=== PATIENT | female | born 1955 ===

== ENCOUNTER 2017-04-05 07:43 | Day surgery (SDC) | payer OTHER ==
[2017-04-05 08:33] VITALS: BMI 23.5
[2017-04-05] MEDS ORDERED: Propofol 10 mg/ml Inj (20 ML) ONE (09:34)
--- NOTE | 2017-04-05 09:37 | CP.SDSHP ---
Same Day Surgery H & P - History Proposed Procedure: EGD Pre-Op Diagnosis: SEE NOTES - Previous Medical/Surgical History Misc: Other Pain: 4.Moderate Pain - Allergies Allergies: Allergies No Known Allergies Allergy (Verified 04/05/17 08:33) - Physical Exam General Appearance: N Vital Signs: Vital Signs 04/05/17 08:35 Temperature 97.4 F L Pulse Rate 79 Respiratory 18 Rate Blood Pressure 131/74 O2 Sat by Pulse 100 Oximetry Mental Status: Alert & Oriented x3 Neuro: WNL Heart: WNL Lungs: WNL GI: Other - {Optional Preform as Required} Breast: WNL Abdomen: Other Rectal: WNL Integument: WNL : WNL Ortho: Other ENT: WNL - Impression Pt. Evaluated Today:Candidate for Anesthesia & Procedure: Yes - Date & Time Time: 09:37 Short Stay Discharge - Short Stay Discharge Admitting Diagnosis/Reason for Visit: DYSPEPSIA Disposition: HOME/ ROUTINE
[2017-04-05] MEDS ORDERED: Belladonna-Phenobarbital PO STA (09:38)
[2017-04-05] MEDS ORDERED: Pantoprazole 40 mg EC Tab PO STA (09:38)
[2017-04-05 10:17] VITALS: TEMP 96.6
[2017-04-05 11:07] VITALS: O2SAT 100
[2017-04-05 11:12] VITALS: BP 130/78; PULSE 71; RESP 12
== END 2017-04-05 11:00 | disposition home or self-care (01) ==
LOC: C.ENDO 07:43
PROVIDERS: ATTEND Specialist
DX: K30 Functional dyspepsia (principal); K20.9 Esophagitis, unspecified; K44.9 Diaphragmatic hernia without obstruction or gangrene
CPT/HCPCS: 43239; 88305; J2704

== ENCOUNTER 2017-04-07 09:18 | Day surgery (SDC) | payer OTHER ==
[2017-04-07 09:56] VITALS: TEMP 97.4
--- NOTE | 2017-04-07 10:04 | CP.SDSHP ---
Same Day Surgery H & P - History Proposed Procedure: COLONSCOPY Pre-Op Diagnosis: SCREENING - Previous Medical/Surgical History Previous Surgical History: T. LIGATION / TONSELECTOMY - Allergies Allergies: Allergies No Known Allergies Allergy (Verified 04/07/17 08:46) - Physical Exam General Appearance: N Vital Signs: Vital Signs 04/07/17 09:47 Temperature 97.4 F L Pulse Rate 68 Respiratory 20 Rate Blood Pressure 118/67 O2 Sat by Pulse 100 Oximetry Mental Status: Alert & Oriented x3 Neuro: WNL Heart: WNL Lungs: WNL GI: WNL - {Optional Preform as Required} Breast: WNL Abdomen: Other Rectal: WNL Integument: WNL : WNL Ortho: WNL ENT: WNL - Impression Pt. Evaluated Today:Candidate for Anesthesia & Procedure: Yes - Date & Time Time: 10:04 Short Stay Discharge - Short Stay Discharge Admitting Diagnosis/Reason for Visit: ENCOUNTER FOR SCREENING FOR MALIGNANT NEOPLASM OF Disposition: HOME/ ROUTINE
[2017-04-07] MEDS ORDERED: Lidocaine Hydrochloride 5 ML INJ ONE (10:11)
[2017-04-07] MEDS ORDERED: Propofol 10 mg/ml Inj (20 ML) ONE (10:11)
[2017-04-07 11:02] VITALS: RESP 18
[2017-04-07] MEDS ORDERED: Belladonna-Phenobarbital PO ONE (11:10)
[2017-04-07 13:06] VITALS: BP 125/73; PULSE 65; O2SAT 98
== END 2017-04-07 11:35 | disposition home or self-care (01) ==
LOC: C.ENDO 09:18
PROVIDERS: ATTEND Specialist
DX: Z12.11 Encounter for screening for malignant neoplasm of colon (principal); K64.8 Other hemorrhoids; K58.9 Irritable bowel syndrome, unspecified; K63.89 Other specified diseases of intestine
CPT/HCPCS: 45380; 88305; J2704